=== PATIENT | male | born 1980 | race Caucasian/White ===

== ENCOUNTER 2024-01-20 15:00 | Outpatient (CLI) | payer OTHER ==
--- NOTE | 2024-01-20 15:53 | Sleep Patient Instructions ---
Sleep Center Visit Summary - Patient Visit Information Reason for Visit: Initial consult for evaluation of sleep disordered breathing and other sleep issues. - Patient Instructions Instructions Attached: Sleep Study, Sleep Study Home Monitor Additional Instructions: You will be completing a sleep study, either an in-lab polysomnography (PSG) or home sleep study (HST). You will follow-up in the sleep care office after the sleep study is completed to hear the results and talk about therapy, if needed. You will be called by our office staff to schedule this appointment, but you may contact us with any questions. - Clinic Information Contact: [facility] [address] [place] [id number] [email or web address] T: [phone]
--- NOTE | 2024-01-20 15:56 | SLEEP CARE CONSULTATION ---
Information from patient questionnaire entered by Willi Galan. I have reviewed and concur with the information entered by Willi Galan. This document represents the service I personally performed and the decisions made by me, Jennifer Motley ARNP. History of Present Illness Service Date and Time: 01/20/2024 1500 Reason for Visit: New patient Chief Complaint: reports: Unrefreshed sleep, Snoring, Excessive daytime sleepiness, Frequent awakenings at night Date of Onset: ~ 4 years Usual bedtime: 9 Time it takes to fall asleep: 30 - 45 min Snores at night: Yes Observed to quit breathing while asleep: No Sleeps alone due to snoring: No Number of times waking at night: 4 - 5 Reasons for waking at night: reports: Snoring, Pain, Bathroom. denies: Choking, Gasping for air Toss, Turn, or Twitch while sleeping: Yes Recalls having dreams: Yes Usually gets out of bed at: 5:10 Feels refreshed in the morning: No Morning headache: Yes (Resolves mid-morning - early afternoon) Sleepy or fatigued during the day: Yes Ever fallen asleep while driving: Yes Takes day naps: Yes Dreams during day naps: No Prior sleep studies: No Additional HPI information: I had the pleasure of seeing AYSE DELEON today regarding the possibility of him having a sleep disorder. His current complaints are excessive daytime sleepiness, frequent night awakenings, snoring and unrefreshed sleep. He says his quality of sleep is poor and his thinks he needs to get a sleep study. She notices that he wakes up a lot to toss and turn at night. He has "jerking spams moving", twitching in his sleep. The patient tells me that he normally goes to bed around 9 pm, and it takes him approximately 30-45 minutes to fall asleep. He has been told that he snores loudly and irregularly at night. He has not been observed to stop breathing in his sleep. His bed partner can still sleep in the same bed. He can recall waking up on the average of 4-5 times during the night. Most of the time he wakes up because of bathroom, pain and snoring. He has occasionally awakened for his own snoring, he thinks There is a lot of tossing and turning in his sleep. Generally he can recall having dreams. He usually wakes up at 0510, later on weekends, and does not feel refreshed. He usually does have a morning headache. He wakes up about 3-4 times a week with the headaches and they last to mid-morning or early afternoon. During the day he complains of feeling sleepy and fatigued. He has never fallen asleep while driving nor has any accident due to sleepiness. He usually takes unintentional naps for about 5-10 minutes during the day. If he naps, upon falling asleep during the day he denies having vivid dreams. There is somniloquy (sleep talking) but no somnambulism (sleep walking). He has never experienced sleep paralysis, cataplexy, or symptoms of restless leg syndrome. He admits having impaired concentration during the day. - Parasomnia Symptoms Ever been unable to move upon waking from sleep: No Walks in sleep: No Talks in sleep: Yes (per his ) Ever acted out dreams in sleep: No Ever felt weak in the knees when startled or emotional: No Bothered by creepy, crawly, restless sensations in legs: Yes Problems with memory or concentration: Yes (poor memory sometimes; sometimes concentration difficult when tired. 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 Patient is and lives in [place]. Have you smoked in the past 12 months: No Alcohol use: Yes Alcohol amount and frequency: 1 glass per week Caffeine use: Yes Caffeine amount and frequency: 4 cups coffee, 6 days per week Family History Family history of sleep disordered breathing: Yes Family Hx Sleep Apnea: Mother: Snoring, Sleep apnea - Untreated, Sibling: Snoring, Sleep apnea - Treated, Grandparent: Sleep apnea - Treated Allergies and Home Medications Known drug allergies: No Drug allergies reviewed: Yes Home medication list reviewed: Yes (as listed) Allergy and home medication list: Allergies No Known Drug Allergies Allergy (Verified 01/20/24 15:45) Home Medications Cyclobenzaprine See Rx Instructions .ROUTE .COMPLEX 01/20/24 [History] Escitalopram See Rx Instructions .ROUTE .COMPLEX 01/20/24 [History] Fluticasone See Rx Instructions .ROUTE .COMPLEX 01/20/24 [History] Meloxicam See Rx Instructions .ROUTE .COMPLEX 01/20/24 [History] Rizatriptan See Rx Instructions .ROUTE .COMPLEX 01/20/24 [History] Voltaren Gel See Rx Instructions .ROUTE .COMPLEX 01/20/24 [History] Review of Systems Weight gain over past 5 years: 15 Weight loss over past 5 years: 0 Cardiovascular: reports: palpitations, chest pain. denies: high blood pressure Gastrointestinal: reports: diarrhea, abdominal pain. denies: heartburn Neurological: reports: headaches Psychiatric: reports: anxiety, depression Ear/Nose/Throat: reports: nasal congestion, dry mouth/throat, wisdom teeth removed. denies: tonsillectomy Endocrine: reports: sluggishness (/tired) Musculoskeletal: reports: joint pain (/stiffness), neck pain, back pain, muscle pain or cramping, mobility problems Immunologic: reports: allergies to food or environment Physical Exam Vital signs obtained and entered by: Jennifer Mclaughlin NP Blood Pressure: 117/75 Cuff size: wrist (right) Heart Rate: 60 O2 Saturation: 98 Height: 5 ft 7 in Weight: 189 lb 12.8 oz Body Mass Index: 29.7 BMI Classification: Overweight Neck circumference: 16 (inches) Mouth and throat: narrow oropharynx Soft palate: long Hard palate: normal Uvula: long Uvula visualization: 0% Mallampati Class IV Tongue: enlarged in size with teeth cardozo on lateral edges Tonsils: 3+/kissing Neck: normal w/o lymphadenopathy or thyromegaly Heart: regular rate and rhythm, murmur Lungs: clear bilaterally Impression and Plan 1. Suspected Obstructive Sleep Apnea-Hypopnea Syndrome, as suggested by a history of loud and irregular snoring, morning headache, frequent awakening during the night, unrefreshed sleep, cognitive impairment, and excessive daytime sleepiness. Narrow oropharynx and obesity are common predisposing factors for obstructive sleep apnea-hypopnea syndrome. I recommend proceeding to polysomnography to confirm the diagnosis and to assess severity. If the patient has significant sleep disordered breathing, a manual CPAP titration study will also be performed to find the optimal treatment pressure. I informed the patient of what the sleep studies involve and after some discussion, obtained agreement to proceed. The pathophysiology of obstructive sleep apnea-hypopnea syndrome was discussed with the patient and health risks of cardiovascular and cerebrovascular disease if not treated. Risks of drowsy driving discussed in detail and patient advised to avoid long distance driving and to last puller at the first sign of drowsiness. Patient agreed to plan. * Schedule polysomnography. * Avoid long distance driving or driving when feeling sleepy. * Avoid alcohol, sedative and muscle relaxant around bedtime. * Attempt to lose weight. * Review instructions provided by trained office staff on how to prepare for the sleep study. * Return for follow-up after sleep study completed. Counseling Topics: Weight loss health impact Plan: PSG/HST Visit Type: In Office Time Spent with Patient (minutes): 30 Provider Statement: I spent 100% of the Face to Face Visit with the patient with greater than 50% spent counseling the patient and coordination of care.
[2024-01-20 16:09] VITALS: BP 117/75; O2SAT 98
== END 2024-01-20 15:01 | disposition home or self-care (01) ==
LOC: SC 15:00
PROVIDERS: ATTEND Nurse Practitioner Family
DX: R06.83 Snoring (principal); R51.9 Headache, unspecified; G47.8 Other sleep disorders; R41.89 Other symptoms and signs involving cognitive functions and awareness; G47.10 Hypersomnia, unspecified; E66.3 Overweight; Z68.29 Body mass index [BMI] 29.0-29.9, adult
CPT/HCPCS: 99203; 99212

== ENCOUNTER 2024-02-11 19:18 | Outpatient (CLI) | payer OTHER | END 2024-02-11 19:19 | disposition home or self-care (01) | LOC: SC 19:18 | PROVIDERS: ATTEND Nurse Practitioner Family | DX: G47.31 Primary central sleep apnea (principal); F32.A Depression, unspecified | CPT/HCPCS: 95810 ==

== ENCOUNTER 2024-02-19 16:00 | Outpatient (CLI) | payer OTHER ==
--- NOTE | 2024-02-19 16:31 | Sleep Patient Instructions ---
Sleep Center Visit Summary - Patient Visit Information Reason for Visit: Sleep study follow-up - Patient Instructions Additional Instructions: You will be completing a titration sleep study in our sleep lab where you will be sleeping with the CPAP machine on and we will be adjusting your pressures to find your optimal pressure settings. Once we have your results back, we will call you and schedule a follow up to go over the results, you may contact us with any questions or issues as needed. Please call office to schedule a follow up appointment in the sleep care office after titration study. - Clinic Information Contact: [facility] [address] [place] [id number] [email or web address] T: [phone]
--- NOTE | 2024-02-19 16:35 | SLEEP CARE CONSULTATION ---
Information from patient questionnaire entered by Graciela Cohen. I have reviewed and concur with the information entered by Graciela Cohen. This document represents the service I personally performed and the decisions made by , Jennifer Motley ARNP. History of Present Illness Service Date and Time: 02/19/2024 1600 Initial [place] Sleepiness Scale score: 13 (in 2023) Current [place] Sleepiness Scale score: 19 (02/19/24) Additional HPI information: AYSE DELEON returns for follow up and results of the recently performed polysomnography. The sleep study showed severe central sleep apnea with an average AHI of 30.3 and eva oxygen saturation of 88%. I explained the pathophysiology behind obstructive sleep apnea. We then spent quite a bit of time discussing different treatment options. For mild obstructive sleep apnea, surgery and oral appliance are alternatives to nasal CPAP therapy but in moderate or severe cases, nasal CPAP is the most effective and reliable treatment. I reviewed the impact of weight changes on sleep apnea and strongly recommended losing weight. After some discussion, the patient opted to go with the nasal CPAP therapy. A manual titration study will be ordered to find optimal pressure with office adjustments. I explained how CPAP machine works and what to expect when using the machine. Using CPAP every night in order to get used to it was emphasized. Patient counseled not drink alcohol less than 4 hours before bedtime as it can increase snoring and apnea. Patient was cautioned about risks of drowsy driving until sleepiness symptoms resolve. Patient denies drowsy driving. Sleep Study - Results Type of Sleep Study: Polysomnography (COMPLETED 02/11/24) Prior sleep studies: No Polysomnography/Home Sleep Study results: IMPRESSION: The quality of the study is good. The patient had reduced sleep efficiency due to frequent awakenings throughout the night. The sleep architecture was abnormal for sleep fragmentation and reduced amount of time spent in REM and slow wave sleep (N3). Respiratory monitoring showed severe central sleep apneahypopnea (AHI = 30.3) associated with frequent arousals, oxyhemoglobin desaturation and mild hypoxia (eva oxygen saturation of 88%). The respiratory events occurred almost exclusively during supine sleep (supine AHI = 40.8; non-supine = 0.89). Snore was light to moderate in intensity. There was no significant periodic leg movement of sleep. Cardiac rhythm was normal sinus rhythm without significant arrhythmia. No abnormal behavior (parasomnia) observed during the night. Allergies and Home Medications Known drug allergies: No Drug allergies reviewed: Yes Home medication list reviewed: Yes (Clonidine for his TMJ) Allergy and home medication list: Allergies No Known Drug Allergies Allergy (Verified 02/18/24 08:51) Review of Systems Review of systems same as previous: No (LOWER BACK BULGING DISK) Physical Exam Vital signs obtained and entered by: GRACIELA Adame MA Blood Pressure: 118/76 (RIGHT ARM) Cuff size: regular Heart Rate: 53 O2 Saturation: 97 Height: 5 ft 7 in Weight: 181 lb 12.8 oz Body Mass Index: 28.4 BMI Classification: Overweight Impression and Plan 1. Central Sleep Apnea-Hypopnea Syndrome, severe, with lowest oxygen saturation of 88%. Obviously this is the cause of the patients symptoms of unrefreshed sleep, and excessive daytime sleepiness. Positive pressure therapy could benefit anxiety and depression. As mentioned above, the patient will be started on nasal autoCPAP therapy. A manual titration study will be completed to find optimal treatment pressure with office adjustments. Compliance guidelines also reviewed. Because the apnea is more severe supine, I instructed to avoid sleeping supine using pillow positioning until able to start CPAP use. 2. Overweight, unspecified. Currently patients BMI is 28.4. Obesity increases the risk of apnea, CPAP pressure requirements and overall health risks especially cardiovascular and diabetes. Thus patient is advised to lose weight. * Titration study. * Attempt to lose weight. * Avoid alcohol consumption near bedtime. * Avoid supine sleep until using CPAP. * The patient is again cautioned about driving until sleepiness completely resolves. * Return after titration study to be set up on PAP therapy. Counseling Topics: Sleeping position, Weight loss health impact Plan: Titration study and follow up Visit Type: In Office Time Spent with Patient (minutes): 20 Provider Statement: I spent 100% of the Face to Face Visit with the patient with greater than 50% spent counseling the patient and coordination of care.
[2024-02-19 16:43] VITALS: BP 118/76; O2SAT 97
== END 2024-02-19 16:01 | disposition home or self-care (01) ==
LOC: SC 16:00
PROVIDERS: ATTEND Nurse Practitioner Family
DX: G47.31 Primary central sleep apnea (principal); E66.3 Overweight; Z68.28 Body mass index [BMI] 28.0-28.9, adult
CPT/HCPCS: 99212; 99213

== ENCOUNTER 2024-05-25 19:28 | Outpatient (CLI) | payer OTHER | END 2024-05-25 19:29 | disposition home or self-care (01) | LOC: SC 19:28 | PROVIDERS: ATTEND Nurse Practitioner Family | DX: G47.31 Primary central sleep apnea (principal); G47.61 Periodic limb movement disorder | CPT/HCPCS: 95811 ==

== ENCOUNTER 2024-06-10 09:50 | Outpatient (CLI) | payer OTHER ==
--- NOTE | 2024-06-10 10:33 | Sleep Patient Instructions ---
Sleep Center Visit Summary - Patient Visit Information Reason for Visit: Titration study follow-up - Patient Instructions Additional Instructions: You are being started on CPAP therapy with pressure setting at 4-6 cmH2O. You will need to call the sleep care office to set up your follow up once you have your CPAP machine to check compliance and response to therapy at that time. You may call the office with any concerns about pressure feeling too low or too much for adjustment, if needed. You should contact DME supplier for any questions or concerns about mask or equipment. Please call office to schedule a follow up appointment in the sleep care office one month after obtaining new device. - Clinic Information Contact: [facility] [address] [place] [address] [email or web address] T: [phone]
--- NOTE | 2024-06-10 10:35 | SLEEP CARE CONSULTATION ---
Information from patient questionnaire entered by Ruth Cohen. I have reviewed and concur with the information entered by Ruth Cohen. This document represents the service I personally performed and the decisions made by , Jennifer Motley ARNP. History of Present Illness Service Date and Time: 06/10/2024 0950 Initial [place] Sleepiness Scale score: 13 (in 2023) Current [place] Sleepiness Scale score: 15 (06/10/24) Additional HPI information: AYSE DELEON returns for follow up of a manual CPAP titration study performed on 05/25/24. Previous study done on 02/11/24 showed severe central sleep apnea with AHI 30.3. The patient was informed of the following polysomnography findings: CPAP was initiated at 5 cmH2O and titrated up to CPAP at 7 cmH2O. CPAP at 6 cmH2O appeared to be optimal (AHI of 0 per hour on the pressure). There was supine REM sleep on the pressure. Oxygen saturation was normal throughout the night. Lower CPAP appeared The patient appeared to have tolerated positive airway pressure therapy fairly well. I explained how CPAP machine works and what to expect when using the machine. Using CPAP every night in order to get used to it was emphasized. Patient advised to put CPAP mask on before getting into bed so as not to fall asleep without CPAP. If the mask given is uncomfortable or is difficult to keep on through the night even with adjustment, contact the CPAP supplier as many will replace with another mask style if notified before 30 days. If snoring or perceives is not getting enough air or too much air from the machine, notify this office. Patient does not drink alcohol. Patient was cautioned about risks of drowsy driving until sleepiness symptoms resolve. Sleep Study - Results Type of Sleep Study: Polysomnography (COMPLETED 02/11/24 TITRATION STUDY COMPLETED 05/25/24) Prior sleep studies: No Polysomnography/Home Sleep Study results: IMPRESSION: The quality of the study is good. CPAP was initiated at 5 cmH2O and titrated up to CPAP at 7 cmH2O. CPAP at 6 cmH2O appeared to be optimal (AHI of 0 per hour on the pressure). There was supine REM sleep on the pressure. Oxygen saturation was normal throughout the night. Lower CPAP appeared The patient appeared to have tolerated positive airway pressure therapy fairly well. The patients sleep efficiency was reduced. The sleep architecture was relatively normal considering the first-night effect. There was moderate periodic leg movement of sleep not associated with sleep fragmentation. Cardiac rhythm was normal sinus rhythm without significant arrhythmia except occasional mild bradycardia. No abnormal behavior (parasomnia) observed during the night. Allergies and Home Medications Known drug allergies: No Drug allergies reviewed: Yes Home medication list reviewed: Yes (no changes) Allergy and home medication list: Allergies No Known Drug Allergies Allergy (Verified 06/10/24 09:56) Review of Systems Review of systems same as previous: Yes (NO CHANGE) Physical Exam Vital signs obtained and entered by: RUTH Adame MA Blood Pressure: 118/70 (LEFT ARM) Cuff size: regular Heart Rate: 47 O2 Saturation: 99 Height: 5 ft 7 in Weight: 180 lb Body Mass Index: 28.1 BMI Classification: Overweight Impression and Plan 1. Central Sleep Apnea-Hypopnea Syndrome, severe. Patient returns after titration study for results and to initiate PAP therapy. His optimal pressure appeared to be 6 cmH2O. The positive pressure therapy could benefit anxiety and depression. The patient will be started on nasal autoCPAP therapy with pressure set at 4-6 cmH2O. Compliance guidelines also reviewed. A copy of compliance guidelines will be given for reference at check out. 2. Periodic limb movement, moderate, that did not fragment patients sleep. Periodic limb movement of sleep (PLMS) is characterized by episodes of repetitive limb movements that occur during sleep and usually involve the lower limbs. The etiology is unknown. Sleep hygiene methods can also improve sleep as well as lifestyle changes such as regular exercise. Patient was advised that no treatment is needed at this time. If symptoms increase, then further evaluation is indicated. 3. Overweight, unspecified. Currently patients BMI is 28.1. Obesity increases the risk of apnea, CPAP pressure requirements and overall health risks especially cardiovascular and diabetes. Thus patient is advised to lose weight. * Nasal auto CPAP therapy, pressure at 4-6 cm H2O. * Attempt to lose weight. * Avoid supine sleep until using CPAP. * The patient is again cautioned about driving until sleepiness completely resolves. * Return one month after CPAP obtained. I will assess response to therapy and compliance at that time. Counseling Topics: Weight loss health impact Prescriptions: Auto CPAP Follow up with Sleep Care in: other (compliance followup) Visit Type: In Office Time Spent with Patient (minutes): 20 Provider Statement: I spent 100% of the Face to Face Visit with the patient with greater than 50% spent counseling the patient and coordination of care.
[2024-06-10 10:41] VITALS: BP 118/70; O2SAT 99
== END 2024-06-10 09:51 | disposition home or self-care (01) ==
LOC: SC 09:50
PROVIDERS: ATTEND Nurse Practitioner Family
DX: G47.31 Primary central sleep apnea (principal); G47.61 Periodic limb movement disorder; E66.3 Overweight; Z68.28 Body mass index [BMI] 28.0-28.9, adult
CPT/HCPCS: 99212; 99213